=== PATIENT | male | born 2000 | race Hispanic/Latino ===

== ENCOUNTER 2024-10-05 21:10 | Emergency (ER) | payer OTHER, SELFPAY ==
[2024-10-05 21:30] VITALS: BP 139/78; PULSE 68; RESP 14; TEMP 37.2; O2SAT 100; BMI 22.3
--- NOTE | 2024-10-05 21:37 | EKG_ITS ---
[address] [address] Test Date: 2024-10-05 Pat Name: Raymundo Mayer Department: Room: Gender: Male [employer] Machine: RODRIGO : 2000 Requested By: Order Number: [id number] Reading MD: Jose Francisco Chaney Measurements Intervals [place] Rate: 58 P: 44 NM: 202 QRS: 68 QRSD: 88 T: 53 QT: 382 QTc: 374 Interpretive Statements Sinus bradycardia Electronically Signed On 10-11-2024 23:41:34 PST by Jose Francisco Chaney
--- NOTE | 2024-10-05 21:38 | DI.RAD.S_ITS ---
PROCEDURE: XR CHEST 1V INDICATIONS: chest pain TECHNIQUE: One view of the chest was acquired. COMPARISON: None. FINDINGS: Surgical changes and devices: None. Lungs and pleura: Lungs are clear. No pleural effusions or pneumothorax. Mediastinum: Mediastinal contours appear normal. Heart size is normal. Bones and chest wall: No suspicious bony lesions. Overlying soft tissues appear unremarkable. IMPRESSION: No acute cardiopulmonary abnormality is seen. Approved by: Jewels Nance M.D.,Ph.D. on 10/05/2024 at 22:12
[2024-10-05 22:05] LABS: Prothrombin Time 11.8 SECONDS (9.4-12.5)
[2024-10-05 22:08] LABS: PTT Partial Thromboplastin Tim 31 SECONDS (25.1-36.5)
[2024-10-05 22:09] LABS: Alanine Aminotransferase 18 IU/L (<50); Albumin 4.5 g/dL (3.5-5.0); Albumin Globulin Ratio 1.6 (1.0-2.8); Alkaline Phosphatase 73 U/L (38-126); Aspartate Aminotransferase 27 IU/L (17-59); BUN Creatinine Ratio 13.3 (6-22); Bilirubin Total 0.6 mg/dL (0.2-1.3); Blood Urea Nitrogen 15 mg/dL (9-20); Calcium 9.1 mg/dL (8.4-10.2); Carbon Dioxide 28 mmol/L (22-32); Chloride 103 mmol/L (98-107); Creatine Kinase 145 U/L (55-170); Estimated Glomerular Filt Rate > 60 mL/min (>60); Globulin 2.8 g/dL (1.7-4.1); Glucose 82 mg/dL (70-100); HEMOLYSIS < 15 (0-50); Lipase 236 U/L (23-300); Magnesium 1.8 mg/dL (1.6-2.3); Potassium 4.1 mmol/L (3.4-5.1); Sodium 137 mmol/L (137-145); Total Protein 7.3 g/dL (6.3-8.2)
[2024-10-05 22:14] LABS: Add Manual Diff / Slide Review NO; Basophils Absolute Auto 0 /uL (0-100); Basophils Percent Auto 0.7 % (0-2); Eosinophils Absolute Auto 100 /uL (0-450); Eosinophils Percent Auto 2.1 % (2-4); Lymphocytes Absolute Auto 2900 /uL (1100-4500); Lymphocytes Percent Auto 42.9 % (25-40); Mean Corpuscular Hemoglobin 29.3 PG (26-34); Mean Corpuscular Volume 86.4 fL (80-100); Monocytes Absolute Auto 600 /uL (0-900); Monocytes Percent Auto 9.1 % (3-14); Neutrophils Absolute Auto 3100 /uL (1500-7000); Neutrophils Percent Auto 45.2 % (50-75); Platelet Count 198 X10^3/uL (150-400); Red Cell Distribution Width 14.3 % (11.6-14.8); White Blood Cell Count 6.8 X10^3/uL (4.5-11.0)
[2024-10-05 22:21] LABS: NT-proBNP (BNP-Adult 18+) < 20 pg/mL (<125); Troponin I < 0.012 ng/mL (0.01-0.034)
[2024-10-05 22:58] VITALS: PULSE 58; RESP 27; O2SAT 100
--- NOTE | 2024-10-05 22:59 | ED.CHESTPAIN ---
HPI - Chest Pain General Chief Complaint: Chest Pain Stated Complaint: states was electricuted Time Seen by Provider: 10/05/24 22:47 Source: patient Mode of arrival: Ambulatory Limitations: no limitations History of Present Illness HPI narrative: 24-year-old male presents for left-sided chest pain. Patient states that he was working on a [employer] jet when he was shocked by static electricity. It caused his fists to clench temporarily, but denies being thrown from the jet, falling, or passing out. Patient then reports feeling left sided chest pain. Currently asymptomatic. Related Data Home Medications Medication Instructions Recorded Confirmed No Known Home Medications 10/05/24 10/05/24 Allergies Allergy/AdvReac Type Severity Reaction Status Date / Time No Known Drug Allergies Allergy Verified 10/05/24 21:30 Patient History Social History Smoking Status: Former smoker Smoking Status: Former smoker Exam Initial Vital Signs Initial Vital Signs: Vital Signs Temperature 99 F 10/05/24 21:30 Pulse Rate 68 10/05/24 21:30 Respiratory Rate 14 10/05/24 21:30 Blood Pressure 139/78 10/05/24 21:30 Pulse Oximetry 100 10/05/24 21:30 Oxygen Delivery Method Room Air 10/05/24 21:30 Const: Awake, alert, no acute distress, nontoxic appearing Cardiac: Bradycardia, regular rhythm RESP: unlabored, clear bilaterally, no wheezing Skin: Warm, Dry, intact, no rashes Neuro: AO x3, CN II-XII grossly intact, moves all extremities Course Orders Ordered: ED Orders 10/05/24 21:37 EKG-12 Lead Stat 10/05/24 21:38 XR chest 1V Stat 10/05/24 21:45 Complete Blood Count AUTO DIFF Stat Comprehensive Metabolic Panel Stat Lipase Stat Magnesium Stat NT-proBNP (BNP-Adult 18+) Stat PTT Partial Thromboplastin Mario Stat Prothrombin Time INR Stat Troponin & CK Cardiac Panel Stat Vital Signs Vital signs: Vital Signs - 8 hr 10/05/24 21:30 10/05/24 22:58 10/05/24 23:00 Temperature 99 F Pulse Rate 68 58 L 55 L Respiratory Rate 14 27 H 15 Blood Pressure 139/78 Pulse Oximetry 100 100 100 Oxygen Delivery Method Room Air 10/05/24 23:03 10/05/24 23:12 Temperature Pulse Rate 61 Respiratory Rate 13 Blood Pressure 113/57 L 113/68 Pulse Oximetry 100 Oxygen Delivery Method Room Air MDM - Chest Pain Lab Data 10/05/24 21:45 10/05/24 21:45 Labs: Lab Results 10/05/24 Range/Units 21:45 WBC 6.8 (4.5-11.0) X10^3/uL RBC 5.10 (4.5-5.9) X10^6/uL Hgb 15.0 (13.5-17.5) g/dL Hct 44.0 (41-53) % MCV 86.4 (80-100) fL MCH 29.3 (26-34) PG MCHC 34.0 (30-36) % RDW 14.3 (11.6-14.8) % Plt Count 198 (150-400) X10^3/uL Neut % (Auto) 45.2 L (50-75) % Lymph % (Auto) 42.9 H (25-40) % [place] % (Auto) 9.1 (3-14) % Eos % (Auto) 2.1 (2-4) % Baso % (Auto) 0.7 (0-2) % Neut # (Auto) 3100 (9938-3537) /uL Lymph # (Auto) 2900 (0518-8957) /uL [place] # (Auto) 600 (0-900) /uL Eos # (Auto) 100 (0-450) /uL Baso # (Auto) 0 (0-100) /uL PT 11.8 (9.4-12.5) SECONDS INR 1.0 (0.9-1.3) APTT 31 (25.1-36.5) SECONDS Sodium 137 (137-145) mmol/L Potassium 4.1 (3.4-5.1) mmol/L Chloride 103 (98-107) mmol/L Carbon Dioxide 28 (22-32) mmol/L BUN 15 (9-20) mg/dL Creatinine 1.13 (0.66-1.25) mg/dL Estimated GFR > 60 (>60) mL/min BUN/Creatinine Ratio 13.3 (6-22) Glucose 82 (70-100) mg/dL Calcium 9.1 (8.4-10.2) mg/dL Magnesium 1.8 (1.6-2.3) mg/dL Total Bilirubin 0.6 (0.2-1.3) mg/dL AST 27 (17-59) IU/L ALT 18 (<50) IU/L Alkaline Phosphatase 73 (38-126) U/L Total Creatine Kinase 145 (55-170) U/L Troponin I < 0.012 (0.01-0.034) ng/mL NT-Pro-B Natriuret Pep < 20 (<125) pg/mL Total Protein 7.3 (6.3-8.2) g/dL Albumin 4.5 (3.5-5.0) g/dL Globulin 2.8 (1.7-4.1) g/dL Albumin/Globulin Ratio 1.6 (1.0-2.8) Lipase 236 (23-300) U/L Imaging Data Chest x-ray: Radiologist's Impression: PROCEDURE: XR CHEST 1V INDICATIONS: chest pain TECHNIQUE: One view of the chest was acquired. COMPARISON: None. FINDINGS: Surgical changes and devices: None. Lungs and pleura: Lungs are clear. No pleural effusions or pneumothorax. Mediastinum: Mediastinal contours appear normal. Heart size is normal. Bones and chest wall: No suspicious bony lesions. Overlying soft tissues appear unremarkable. IMPRESSION: No acute cardiopulmonary abnormality is seen. Approved by: Jewels Nance M.D.,Ph.D. on 10/05/2024 at 22:12 ECG Data Interpretation: Sinus bradycardia at 58 beats per minute. Normal NC. No ST T wave changes MDM Narrative Medical decision making narrative: Chest pain after being shocked by static electricity. There are no sequela of electroshock on patient's body. He has no herring and is currently asymptomatic. EKG sinus bradycardia. Laboratory work unremarkable. Chest x-ray negative for acute findings. Patient informed of lab and imaging findings. States he is relieved by normal workup. Recommended PCP follow up as needed. Discharge Plan Departure Patient Disposition: Home Clinical Impression: Chest pain, Electric shock Instructions: DI for Atypical Chest Pain Activity Restrictions/Additional Instructions: Your blood work and EKG are normal. You may continue all activities normally. Follow up as needed with your primary care doctor. Prescriptions: No Action No Known Home Medications Referrals: Tracy Adams [Primary Care Provider] - Stand Alone Forms: Patient Portal/API/Survey
[2024-10-05 23:00] VITALS: PULSE 55; RESP 15; O2SAT 100
--- NOTE | 2024-10-05 23:02 | PC.NURSE ---
Pt assessed by provider prior to the RN able to see patient.
[2024-10-05 23:03] VITALS: BP 113/57
[2024-10-05 23:12] VITALS: BP 113/68; PULSE 61; RESP 13; O2SAT 100
== END 2024-10-05 23:14 | disposition home or self-care (01) ==
PROVIDERS: Emergency Provider Emergency Medicine
DX: R07.9 Chest pain, unspecified (principal); T75.4XXA Electrocution, initial encounter; R00.1 Bradycardia, unspecified; Z87.891 Personal history of nicotine dependence
CPT/HCPCS: 36415; 71045; 80053; 82550; 83690; 83735; 83880; 84484; 85025; 85610; 85730; 93005; 99283; 99284